=== PATIENT | male | born 2000 | race Caucasian/White ===

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

== ENCOUNTER 2021-03-12 00:40 | Emergency (ER) | payer OTHER, MEDICAID ==
[~2021-03-12] VITALS: Ht 175.3 cm; Wt 75.4 kg
[2021-03-12] MEDS ORDERED: ACETAMINOPHEN 325MG TABLET PO ONE (01:30)
[2021-03-12 02:33] VITALS: BP 121/71
[2021-03-12] MEDS ORDERED: IBUP-2029 MT (02:33)
== END 2021-03-12 02:38 | disposition home or self-care (01) ==
LOC: ER 00:40
DX: S62.666A Nondisplaced fracture of distal phalanx of right little finger, initial encounter for closed fracture (principal); S61.306A Unspecified open wound of right little finger with damage to nail, initial encounter; W21.89XA Striking against or struck by other sports equipment, initial encounter; Y93.89 Activity, other specified; Y92.488 Other paved roadways as the place of occurrence of the external cause
CPT/HCPCS: 29130; 73140; 99283